=== PATIENT | female | born 1930 | race American Indian/Alaskan Native ===

== ENCOUNTER 2018-07-11 11:36 | Outpatient (CLI) | payer MEDICARE | END 2018-07-11 11:37 | disposition home or self-care (01) | LOC: C.LAB 11:36 ==

== ENCOUNTER 2018-08-08 12:26 | Outpatient (CLI) | payer MEDICARE | END 2018-08-08 12:27 | disposition home or self-care (01) | LOC: C.PAT 12:26 | DX: I73.9 Peripheral vascular disease, unspecified (principal) ==

== ENCOUNTER 2018-11-09 11:03 | Outpatient (CLI) | payer MEDICARE | END 2018-11-09 11:04 | disposition home or self-care (01) | LOC: C.PAT 11:03 ==

== ENCOUNTER 2018-11-17 07:01 | Day surgery (SDC) | payer MEDICARE ==
[2018-11-09 11:14] VITALS: BMI 18.2
[2018-11-17 08:18] LABS: BLOOD UREA NITROGEN 20 mg/dL (7-17); CALCIUM 9.9 mg/dl (8.6-10.4); GFR NON-AFRICAN AMERICAN 59
[2018-11-17] MEDS ORDERED: Lidocaine 2% MPF (5 ml) Inj ONE (08:32)
[2018-11-17] MEDS ORDERED: Iodixanol 320 MG/ML 200 ML BOTTLE IV ONE (08:33)
[2018-11-17] MEDS ORDERED: Etomidate 20 mg/10ml Inj IV ONE (08:34)
[2018-11-17] MEDS ORDERED: ePHEDrine 50 mg/ml Inj ONE (08:34)
--- NOTE | 2018-11-17 09:06 | PCM.SURG1 ---
Surgeon's Initial Post Op Note - Surgeon's Notes Surgeon: Jim Hassan MD [employer] Trader: Dorothea Garcia, PGY-2 Type of Anesthesia: IV Sedation Anesthesia Administered By: Dr. Mike Aldana Pre-Operative Diagnosis: Peripheral vascular disease with rest pain Operative Findings: Severe tibial disease, peroneal open to ankle, DP reconstitutes below in foot, no intervention, pressure closure in groin Post-Operative Diagnosis: PVD of tibial Operation Performed: Aortofemoral angiogram with bilateral run off, selective catheterization of left femoral artery with pressure closure Specimen/Specimens Removed: none Estimated Blood Loss: EBL {In ML}: 5 Blood Products Given: N/A Drains Used: No Drains Post-Op Condition: Good Date of Surgery/Procedure: 11/17/18 Time of Surgery/Procedure: 09:15
--- NOTE | 2018-11-18 08:08 | VAS ---
DATE: 11/17/2018 PREOPERATIVE DIAGNOSIS: Rest pain, left foot. PROCEDURE CARRIED OUT: Aortofemoral angiogram via right groin with selective catheterization of left femoral artery. No intervention. SURGEON: Jim Hassan Jr., MD WRAPPER STEMMER HAND: Dorothea Garcia DO ANESTHESIOLOGIST: Keisha Chiang CRNA INDICATIONS: The patient is an 88-year-old woman with severe rest pain, left foot. OPERATIVE FINDINGS: The aorta and renal arteries, iliac arteries, internal iliac arteries, external iliac arteries and common femoral arteries were free of significant occlusive disease. Both superficial femoral arteries were widely patent. Both popliteal arteries were widely patent. On the right side, there was tibial disease but detailed pictures were not taken below the level of the trifurcation due to the patient's body habitus and the dilution of the dye. On the left side, which was the affected leg, there was severe tibial disease. The peroneal artery was open to the ankle. The anterior tibial occluded within the anterior takeoff. The posterior tibial artery was not visualized. There was collateral flow down through the vessels, but the main vessel is the peroneal artery. In the foot, there is no reconstitution of any main vessel except for a segment of the dorsal pedis that reconstituted below the level of the malleolus. No intervention was undertaken. Subsequent of this, pressure closure was carried in the right groin. DESCRIPTION OF PROCEDURE: The patient was given local anesthesia using ultrasound guidance, the right groin was punctured. Under fluoroscopic control, the guidewire was advanced. An Omni Flush catheter position at the level of the renal arteries. Overlapping closure taken from this level down to the foot with the above-mentioned findings. After we cannulated the left femoral artery, we placed an Omni Flush catheter in the distal portion of the superficial femoral artery and took selective pictures of the tibial vessels with the above-mentioned findings. We then removed all the devices by pressure. We then terminated the procedure. Operation carried out aortofemoral angiogram with selective catheterization of left femoral artery. No intervention was undertaken. Jim Hassan Jr., MD cc: Dr. Lolita Darby MD
== END 2018-11-17 14:24 | disposition home or self-care (01) ==
LOC: C.SPRAD 07:01
PROVIDERS: ATTEND Surgery Vascular Surgery
DX: I73.9 Peripheral vascular disease, unspecified (principal); I10 Essential (primary) hypertension; G62.9 Polyneuropathy, unspecified
CPT/HCPCS: 36247; 36415; 75625; 75716; 75774; 76937; 80048; 96360; C1769; J0360; J1644; Q9966